=== PATIENT | male | born 2000 | race Caucasian/White ===

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

== ENCOUNTER → 2021-11-06 | Outpatient (CLI) | payer BC ==
--- NOTE | 2021-11-06 13:15 | XR ---
EXAMINATION TYPE: XR shoulder complete BILAT DATE OF EXAM: 11/06/2021 COMPARISON: NONE HISTORY: Pain TECHNIQUE: Three views are submitted. FINDINGS: The osseous structures are intact. There is no acute fracture or dislocation. The AC joint is maint ained. IMPRESSION: 1. No acute process.
--- NOTE | 2021-11-06 13:18 | XR ---
EXAMINATION TYPE: XR spine complete AP and Lat DATE OF EXAM: 11/06/2021 COMPARISON: NONE HISTORY: Pain TECHNIQUE: AP and lateral views of the cervical, thoracic and lumbar spine are submitted. FINDINGS: Vertebral body height and disc space maintained at all levels there is enlargement of the t ransverse processes L1 with CT scan is recommended. No compression deformities. Pedicles appear to be intact. There is suggestion of spina bifida occulta involving the sacrum. 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 Occasionally can be ass ociated with intraosseous lesions. Recommend CT scan correlation
== END | disposition home or self-care (01) ==
LOC: RADXRMAIN 12:13
PROVIDERS: ATTEND Pediatrics
DX: M25.511 Pain in right shoulder (principal); M25.512 Pain in left shoulder
CPT/HCPCS: 72082